=== PATIENT | male | born 1935 | race African-American/Black ===

== ENCOUNTER 2018-09-26 16:05 | Emergency (ER) | payer MEDICARE ==
[2018-09-26] MEDS ORDERED: Cephalexin 500 MG CAP ONE (17:43)
[2018-09-26] MEDS ORDERED: Bacitracin Zinc 1 Packet ONE (17:43)
--- NOTE | 2018-09-26 18:58 | RAD ---
RIGHT TIBIA AND FIBULA 2 VIEWS: Date: 09/26/18 HISTORY: Evaluate for osteomyelitis. Sore in right lower extremity with minimal drainage. COMPARISON: None. FINDINGS: There are vascular calcifications. No fracture. No cortical irregularity. No periosteal reaction. IMPRESSION: No radiographic evidence of osteomyelitis. POS: PPP
== END 2018-09-26 17:54 | disposition home or self-care (01) ==
LOC: MADERS 16:05
DX: L03.115 Cellulitis of right lower limb (principal); F03.90 Unspecified dementia, unspecified severity, without behavioral disturbance, psychotic disturbance, mood disturbance, and anxiety; E11.9 Type 2 diabetes mellitus without complications; E78.5 Hyperlipidemia, unspecified; I10 Essential (primary) hypertension; Z79.82 Long term (current) use of aspirin; Z79.84 Long term (current) use of oral hypoglycemic drugs

== ENCOUNTER 2019-12-14 12:05 | Outpatient (CLI) | payer MEDICARE ==
[2019-12-14 12:45] LABS: #Basophils 0.1 thou/uL (0.0-0.2); #Eosinphils 0.2 thou/uL (0.0-0.7); #Lymphocytes 1.9 thou/uL (1.20-3.40); #Monocytes 0.4 thou/uL (0.11-0.59); %Basophils 1.1 % (0.0-1.0); %Eosinophils 2.9 % (0.0-10.0); %Lymphocytes 29.2 % (21.0-51.0); %Monocytes 5.3 % (0.0-10.0); %Neutrophils 61.5 % (42.0-75.0); Hemoglobin 13.2 g/dL (14.0-18.0); Mean Corpuscular HGB CONC 30.6 g/dL (32.0-36.0); Mean Corpuscular Hemoglobin 25.9 pg (27.0-31.0); Mean Corpuscular Volume 84.7 fL (78.0-98.0); Platelet Count 166 thou/uL (130-400); RBC Distribution Width 12.6 % (11.5-14.5); Red Blood Cell (RBC) Count 5.09 mill/uL (4.70-6.10); White Blood Cell (WBC) Count 6.5 thou/uL (4.8-10.8)
== END 2019-12-14 12:06 | disposition home or self-care (01) ==
LOC: MADLAB 12:05
PROVIDERS: ATTEND Family Medicine
DX: E11.65 Type 2 diabetes mellitus with hyperglycemia (principal); E87.0 Hyperosmolality and hypernatremia
CPT/HCPCS: 84153; 85025

== ENCOUNTER 2020-07-17 17:50 | Emergency (ER) | payer MEDICARE ==
[2020-07-17] MEDS ORDERED: Lidocaine-Prilocaine 2.5% Cream 5 GM TUBE ONE (18:35)
--- NOTE | 2020-07-17 19:20 | RAD ---
RADIOGRAPH RIGHT HAND 3VIEWS: DATE: 07/17/2020 HISTORY: 84-year-old male status post acute traumatic right hand injury due to fall. FINDINGS: There is no dislocation. No fracture is identified. 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 Diff use osteopenia. IMPRESSION: 1. No fracture. 2. 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
--- NOTE | 2020-07-17 19:24 | CT ---
CT BRAIN NONCONTRAST: DATE: 07/17/2020 HISTORY: 84-year-old male status post acute head trauma from fall FINDINGS: There is no evidence of acute intra-axial or extra-axial hemorrhage. There is no midline shift or any other mass effect. There is no extra-axial fluid collection. There is no evidence of obstructive hydrocephalus. Calvarium is intact. There is diffuse brain parenchymal volume loss. There are low att enuation areas in the white matter. 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 IMPRESSION: 1) No acute intracranial findings. 2) involutional changes and chronic ischemic white matter changes.
--- NOTE | 2020-07-17 19:27 | CT ---
CT CERVICAL SPINE NONCONTRAST: DATE: 07/17/2020 HISTORY: cervical trauma: 83-year-old male status post fall FINDINGS: There are no jumped or perched facets. There is no evidence of acute fracture. The vertebral body hei ghts are maintained. There is no prevertebral soft tissue swelling. IMPRESSION: No evidence of acute fracture or acute traumatic subluxation.
[2020-07-17] MEDS ORDERED: Boostrix 0.5 ML (Tdap) VIAL ONE (20:06)
[2020-07-17] MEDS ORDERED: Lidocaine 1% 20 ML MDV ONE (20:15)
[2020-07-17] MEDS ORDERED: Bacitracin 1 PK ONE (20:44)
== END 2020-07-17 21:05 | disposition home or self-care (01) ==
LOC: MADERS 17:50
DX: S61.210A Laceration without foreign body of right index finger without damage to nail, initial encounter (principal); S00.83XA Contusion of other part of head, initial encounter; S00.31XA Abrasion of nose, initial encounter; F03.90 Unspecified dementia, unspecified severity, without behavioral disturbance, psychotic disturbance, mood disturbance, and anxiety; N40.0 Benign prostatic hyperplasia without lower urinary tract symptoms; E78.5 Hyperlipidemia, unspecified; I10 Essential (primary) hypertension; E78.00 Pure hypercholesterolemia, unspecified; E11.9 Type 2 diabetes mellitus without complications; Z79.899 Other long term (current) drug therapy; Z79.82 Long term (current) use of aspirin; Z86.73 Personal history of transient ischemic attack (TIA), and cerebral infarction without residual deficits; W18.30XA Fall on same level, unspecified, initial encounter
CPT/HCPCS: 12002; 70450; 72125; 90471; 90715

== ENCOUNTER 2020-08-01 16:29 | Emergency (ER) | payer MEDICARE | END 2020-08-01 18:08 | disposition home or self-care (01) | LOC: MADERS 16:29 | DX: S61.411D Laceration without foreign body of right hand, subsequent encounter (principal); E78.5 Hyperlipidemia, unspecified; I10 Essential (primary) hypertension; E78.00 Pure hypercholesterolemia, unspecified; E11.9 Type 2 diabetes mellitus without complications; Z79.82 Long term (current) use of aspirin; Z79.899 Other long term (current) drug therapy ==

== ENCOUNTER 2021-02-17 13:49 | Emergency (ER) | payer MEDICARE | END 2021-02-17 15:25 | disposition home or self-care (01) | LOC: MADERS 13:49 | DX: S00.83XA Contusion of other part of head, initial encounter (principal); S00.531A Contusion of lip, initial encounter; S60.412A Abrasion of right middle finger, initial encounter; M25.561 Pain in right knee; F03.90 Unspecified dementia, unspecified severity, without behavioral disturbance, psychotic disturbance, mood disturbance, and anxiety; E78.5 Hyperlipidemia, unspecified; I10 Essential (primary) hypertension; N40.0 Benign prostatic hyperplasia without lower urinary tract symptoms; E78.00 Pure hypercholesterolemia, unspecified; E11.9 Type 2 diabetes mellitus without complications; Z79.4 Long term (current) use of insulin; Z86.73 Personal history of transient ischemic attack (TIA), and cerebral infarction without residual deficits; Z79.82 Long term (current) use of aspirin; Z79.899 Other long term (current) drug therapy; W18.30XA Fall on same level, unspecified, initial encounter | CPT/HCPCS: 70450; 70486 ==

== ENCOUNTER 2021-06-26 16:00 | Outpatient (CLI) | payer MEDICARE | END 2021-06-26 16:01 | disposition home or self-care (01) | LOC: MADLAB 16:00 | PROVIDERS: ATTEND Physician Assistant | DX: K59.00 Constipation, unspecified (principal) | CPT/HCPCS: 74019 ==

== ENCOUNTER 2021-09-28 22:06 | Emergency (ER) | payer MEDICARE ==
[2021-09-28] MEDS ORDERED: Cefepime 2 GM VIAL ONE (22:33)
[2021-09-28] MEDS ORDERED: Sodium Chloride 0.9% 100 ML ONE (22:33)
[2021-09-28] MEDS ORDERED: Acetaminophen 325 MG Suppository ONE (22:34)
[2021-09-28] MEDS ORDERED: Sodium Chloride 0.9% 250 ML 500 ML ONE (23:00)
[2021-09-28] MEDS ORDERED: Vancomycin HCl 750 MG VIAL ONE (23:00)
[2021-09-28 23:30] LABS: #Basophils 0.1 thou/uL (0.0-0.2); #Lymphocytes 0.5 thou/uL (1.20-3.40); #Monocytes 0.1 thou/uL (0.11-0.59); #Neutrophils 3.3 thou/uL (1.40-6.50); %Basophils 1.3 % (0.0-1.0); %Eosinophils 0.1 % (0.0-10.0); %Lymphocytes 11.8 % (21.0-51.0); %Monocytes 3.4 % (0.0-10.0); %Neutrophils 83.4 % (42.0-75.0); Hemoglobin 12.2 g/dL (14.0-18.0); Mean Corpuscular HGB CONC 30.4 g/dL (32.0-36.0); Mean Corpuscular Volume 85.5 fL (78.0-98.0); Mean Platelet Volume 6.8 fL (7.4-10.4); Platelet Count 121 thou/uL (130-400); RBC Distribution Width 12.4 % (11.5-14.5)
[2021-09-28 23:45] LABS: Base Excess-Venous 0.5 mmol/L (-2.0 to 3.0); Bicarbonate (HCO3v) 26.9 mmol/L (22.0-28.0); CO2 Tension (PvCO2) 49.5 mmHg (42.0-51.0); Calcium, Ionized 1.07 mmol/L (1.15-1.33); Chloride 130 mmol/L (98-107); Potassium 3.8 mmol/L (3.5-5.1); Sodium 164 mmol/L (138-145); T. Carbon Dioxide 28.4 mmol/L (22.0-28.0); vO2 Saturation-calc 85.8 % (60.0-85.0)
[2021-09-28 23:49] LABS: Anion Gap 16 mmol/L (10-20)
[2021-09-28 23:52] LABS: ALT (SGPT) 29 U/L (8-55); AST (SGOT) 42 U/L (5-34); Albumin 2.9 g/dL (3.4-4.8); Alkaline Phosphatase 63 U/L (40-110); BUN (Urea Nitrogen) 78 mg/dL (8.4-25.7); Bilirubin, Total 0.5 mg/dL (0.2-1.2); CK (CPK) 147 U/L (30-200); Calc. Creatinine Clearance 0 mL/min (70-130); Carbon Dioxide 24 mmol/L (23-31); Chloride 123 mmol/L (98-107); Globulin 3.7 g/dL (2.4-3.5); Glucose 119 mg/dL (83-110); Potassium 3.8 mmol/L (3.5-5.1); Protein, Total 6.6 g/dL (5.8-8.1); Sodium 159 mmol/L (136-145)
[2021-09-28 23:55] LABS: Bilirubin Negative (Negative); Blood, Urine Moderate (Negative); Clarity Turbid (Clear); Glucose, Urine (Dipstick) Negative (Negative); Ketone, Urine Negative (Negative); Leukocyte Small (Negative); Nitrite Negative (Negative); Protein, Urine (Dipstick) 100 mg/dL (Neg-Trace); Specific Gravity, Urine 1.025 (1.005-1.030); Urobilinogen 0.2 mg/dL (Less than 2); WBC/HPF Greater than 50 HPF (0-3)
[2021-09-28 23:56] LABS: Bacteria/HPF 2+ HPF (None Seen); Yeast-Budding 2+ HPF (None Seen)
[2021-09-29 00:06] LABS: CKMB 0.5 ng/mL (0-6.6)
[2021-09-29] MEDS ORDERED: Aspirin 300 MG Suppository ONE (00:30)
[2021-09-29 01:36] LABS: SARS-CoV-2 NAA Rapid Test DETECTED (NotDetected)
== END 2021-09-29 01:15 | disposition short-term general hospital (02) ==
LOC: MADERS 22:06
DX: A41.89 Other specified sepsis (principal); U07.1 COVID-19; J12.82 Pneumonia due to coronavirus disease 2019; E87.0 Hyperosmolality and hypernatremia; D61.818 Other pancytopenia; N39.0 Urinary tract infection, site not specified; N17.9 Acute kidney failure, unspecified; I10 Essential (primary) hypertension; E78.5 Hyperlipidemia, unspecified; E11.9 Type 2 diabetes mellitus without complications; Z86.73 Personal history of transient ischemic attack (TIA), and cerebral infarction without residual deficits
CPT/HCPCS: 0240U; 51702; 70450; 71045; 80053; 81003; 81015; 82330; 82550; 82553; 82803; 83605; 83735; 83880; 84443; 84484; 85025; 86140; 87040; 87086; 93005; 94760; 96365; 96366; 96367; J0692; J1956; J3370; J3490; J7050

== ENCOUNTER 2022-03-17 08:42 | Emergency (ER) | payer MEDICARE, OTHER ==
[2022-03-17] MEDS ORDERED: Lactated Ringer's 1,000 ML ONE ×2 (09:41→14:49)
[2022-03-17] MEDS ORDERED: Glycerin Adult Supp. (24 ct jar) ONE (10:45)
[2022-03-17 10:55] LABS: #Eosinphils 0.2 thou/uL (0.0-0.7); #Lymphocytes 1.7 thou/uL (1.20-3.40); #Monocytes 0.3 thou/uL (0.11-0.59); #Neutrophils 4.3 thou/uL (1.40-6.50); %Basophils 0.7 % (0.0-1.0); %Eosinophils 2.6 % (0.0-10.0); %Lymphocytes 26.6 % (21.0-51.0); %Monocytes 4.9 % (0.0-10.0); %Neutrophils 65.3 % (42.0-75.0); Anisocytosis SLIGHT = 6-15 cells (100X) (0-5/hpf); MDiff Complete? YES; Mean Corpuscular HGB CONC 29.8 g/dL (32.0-36.0); Mean Corpuscular Hemoglobin 25.1 pg (27.0-31.0); Mean Corpuscular Volume 84.4 fL (78.0-98.0); Mean Platelet Volume 10.8 fL (7.4-10.4); Microcytosis SLIGHT = 6-15 cells (100X) (0-5/hpf); Platelet Count 91 thou/uL (130-400); Platelet Morphology Comment Appears Decreased; RBC Distribution Width 15.6 % (11.5-14.5); Red Blood Cell (RBC) Count 5.97 mill/uL (4.70-6.10); White Blood Cell (WBC) Count 6.6 thou/uL (4.8-10.8)
[2022-03-17 11:13] LABS: ALT (SGPT) 45 U/L (8-55); AST (SGOT) 26 U/L (5-34); Albumin 3.8 g/dL (3.4-4.8); Alkaline Phosphatase 85 U/L (40-110); Anion Gap 18 mmol/L (10-20); BUN (Urea Nitrogen) 51 mg/dL (8.4-25.7); Bilirubin, Total 0.9 mg/dL (0.2-1.2); Calc. Creatinine Clearance 0 mL/min (70-130); Calcium 9.8 mg/dL (7.8-10.44); Carbon Dioxide 21 mmol/L (23-31); Chloride 133 mmol/L (98-107); Estimated GFR 22; Globulin 3.6 g/dL (2.4-3.5); Glucose 129 mg/dL (83-110); Lipase 16 U/L (8-78); Magnesium 2.6 mg/dL (1.6-2.6); Potassium 4.4 mmol/L (3.5-5.1); Protein, Total 7.4 g/dL (5.8-8.1); Sodium 167 mmol/L (136-145)
[2022-03-17 11:41] LABS: Phosphorus 3.4 mg/dL (2.3-4.7)
[2022-03-17 14:20] LABS: Anion Gap 17 mmol/L (10-20); BUN (Urea Nitrogen) 51 mg/dL (8.4-25.7); Calc. Creatinine Clearance 0 mL/min (70-130); Calcium 9.7 mg/dL (7.8-10.44); Carbon Dioxide 26 mmol/L (23-31); Chloride 130 mmol/L (98-107); Estimated GFR 23; Glucose 114 mg/dL (83-110); Potassium 4.4 mmol/L (3.5-5.1); Sodium 169 mmol/L (136-145)
[2022-03-17] MEDS ORDERED: Dextrose 5% in Water 1,000 ML ONE (14:49)
== END 2022-03-17 17:55 | disposition short-term general hospital (02) ==
LOC: MADERS 08:42
DX: E87.0 Hyperosmolality and hypernatremia (principal); I12.9 Hypertensive chronic kidney disease with stage 1 through stage 4 chronic kidney disease, or unspecified chronic kidney disease; E11.22 Type 2 diabetes mellitus with diabetic chronic kidney disease; N18.9 Chronic kidney disease, unspecified; E87.8 Other disorders of electrolyte and fluid balance, not elsewhere classified; D69.6 Thrombocytopenia, unspecified; E78.5 Hyperlipidemia, unspecified; F03.90 Unspecified dementia, unspecified severity, without behavioral disturbance, psychotic disturbance, mood disturbance, and anxiety; Z79.4 Long term (current) use of insulin; Z86.73 Personal history of transient ischemic attack (TIA), and cerebral infarction without residual deficits; Z79.899 Other long term (current) drug therapy
CPT/HCPCS: 36415; 70450; 74176; 80053; 83690; 83735; 84100; 85025; 93005; 94760; 96360; 96361; J7070; J7120

== ENCOUNTER 2022-11-07 22:03 | Emergency (ER) | payer MEDICARE, OTHER ==
[2022-11-07 22:44] LABS: #Lymphocytes 0.9 thou/uL (1.20-3.40); #Monocytes 0.3 thou/uL (0.11-0.59); #Neutrophils 5.3 thou/uL (1.40-6.50); %Basophils 0.2 % (0.0-1.0); %Lymphocytes 13.6 % (21.0-51.0); %Monocytes 4.4 % (0.0-10.0); %Neutrophils 81.7 % (42.0-75.0); Hemoglobin 11.7 g/dL (14.0-18.0); MDiff Complete? YES; Mean Corpuscular HGB CONC 31.9 g/dL (32.0-36.0); Mean Corpuscular Hemoglobin 28.6 pg (27.0-31.0); Mean Corpuscular Volume 89.4 fl (78.0-98.0); Ovalocytes SLIGHT = 2-5 cells (100X) (0-1/hpf); Platelet Count 78 10x3/uL (130-400); Platelet Morphology Comment Appears Decreased; RBC Distribution Width 13.3 % (11.5-14.5); Red Blood Cell (RBC) Count 4.11 mill/uL (4.70-6.10); White Blood Cell (WBC) Count 6.5 10x3/uL (4.8-10.8)
[2022-11-07 22:45] LABS: INR-International Normal Ratio 1.2; Prothrombin Time 15.2 sec (12.0-14.7)
[2022-11-07 22:54] LABS: Phosphorus 2.5 mg/dL (2.3-4.7)
[2022-11-07 23:13] LABS: CKMB 0.5 ng/mL (0-6.6)
[2022-11-07 23:15] LABS: Acetaminophen Less than 10.0 mcg/mL (10.0-30.0); Alcohol Less than 10 mg/dL (Less than 10); CK (CPK) 200 U/L (30-200); Salicylate Less than 8.0 mg/dL (15.0-30.0)
[2022-11-07 23:25] LABS: ALT (SGPT) 13 U/L (8-55); AST (SGOT) 16 U/L (5-34); Albumin 3.2 g/dL (3.4-4.8); Alkaline Phosphatase 83 U/L (40-110); BUN (Urea Nitrogen) 75 mg/dL (8.4-25.7); Bilirubin, Total 1.1 mg/dL (0.2-1.2); Calc. Creatinine Clearance 0 mL/min (70-130); Calcium 8.2 mg/dL (7.8-10.44); Carbon Dioxide 28 mmol/L (23-31); Chloride 140 mmol/L (98-107); Estimated GFR 24; Globulin 2.8 g/dL (2.4-3.5); Glucose 167 mg/dL (83-110); Lipase 37 U/L (8-78); Magnesium 2.7 mg/dL (1.6-2.6); Potassium 3.5 mmol/L (3.5-5.1); Sodium Greater than 175 mmol/L (136-145)
[2022-11-07] MEDS ORDERED: Dextrose 5% in Water 1,000 ML ONE (23:41)
[2022-11-07 23:56] LABS: SARS-CoV-2 NAA Rapid Test Not Detected (NotDetected)
[2022-11-07] MEDS ORDERED: cefTRIAXone\\ROCEPHIN 1 GM VIAL ONE (23:56)
== END 2022-11-08 00:34 | disposition short-term general hospital (02) ==
LOC: MADERS 22:03
DX: E87.0 Hyperosmolality and hypernatremia (principal); R77.8 Other specified abnormalities of plasma proteins; G93.89 Other specified disorders of brain; J18.9 Pneumonia, unspecified organism; Z20.822 Contact with and (suspected) exposure to COVID-19; E11.9 Type 2 diabetes mellitus without complications; Z79.4 Long term (current) use of insulin; I10 Essential (primary) hypertension; E78.5 Hyperlipidemia, unspecified; Z79.899 Other long term (current) drug therapy
CPT/HCPCS: 70450; 71045; 74176; 80053; 80307; 82550; 82553; 83605; 83690; 83735; 83880; 84100; 84484; 85025; 85610; 87040; 87077; 87149; 93005; 96374; J0696; J7070

== ENCOUNTER 2022-12-31 11:13 | Emergency (ER) | payer OTHER ==
[~2022-12-31 11:13] MED LIST: Sodium Chloride 0.9% 1,000 ML BAG ONE
[2022-12-31 14:33] LABS: #Basophils 0.1 thou/uL (0.0-0.2); #Eosinphils 0.1 thou/uL (0.0-0.7); #Lymphocytes 1.4 thou/uL (1.20-3.40); #Monocytes 0.4 thou/uL (0.11-0.59); %Basophils 0.9 % (0.0-1.0); %Eosinophils 0.9 % (0.0-10.0); %Lymphocytes 20.3 % (21.0-51.0); %Monocytes 5.8 % (0.0-10.0); %Neutrophils 72.1 % (42.0-75.0); Hemoglobin 10.8 g/dL (14.0-18.0); Mean Corpuscular HGB CONC 32.4 g/dL (32.0-36.0); Mean Corpuscular Hemoglobin 29.2 pg (27.0-31.0); Mean Corpuscular Volume 89.9 fl (78.0-98.0); Mean Platelet Volume 8.3 fL (7.4-10.4); Platelet Count 154 10x3/uL (130-400)
[2022-12-31 14:51] LABS: ALT (SGPT) 11 U/L (8-55); AST (SGOT) 24 U/L (5-34); Albumin 3.4 g/dL (3.4-4.8); Alkaline Phosphatase 71 U/L (40-110); Anion Gap 14 mmol/L (10-20); BUN (Urea Nitrogen) 27 mg/dL (8.4-25.7); Bilirubin, Total 0.3 mg/dL (0.2-1.2); Calc. Creatinine Clearance 0 mL/min (70-130); Calcium 9.3 mg/dL (7.8-10.44); Carbon Dioxide 28 mmol/L (23-31); Chloride 106 mmol/L (98-107); Estimated GFR 67; Globulin 3.4 g/dL (2.4-3.5); Glucose 103 mg/dL (83-110); Potassium 4.2 mmol/L (3.5-5.1); Protein, Total 6.8 g/dL (5.8-8.1); Sodium 144 mmol/L (136-145)
[2022-12-31 14:57] LABS: Bilirubin Negative (Negative); Blood, Urine Moderate (Negative); Glucose, Urine (Dipstick) Negative (Negative); Ketone, Urine Negative (Negative); Leukocyte Moderate (Negative); Nitrite Negative (Negative); Protein, Urine (Dipstick) 30 mg/dL (Neg-Trace); Specific Gravity, Urine 1.015 (1.005-1.030); Urobilinogen 0.2 mg/dL (Less than 2)
[2022-12-31 15:15] LABS: Bacteria/HPF Rare-Few HPF (None Seen); Clarity Hazy (Clear); RBC/HPF 0-3 HPF (0-3); Squamous Epithelial 0-3 HPF (0-3); WBC/HPF 21-50 HPF (0-3)
[2022-12-31] MEDS ORDERED: cefTRIAXone (ROCEPHIN) 1 GM VIAL ONE (15:42)
[2022-12-31] MEDS ORDERED: Sodium Chloride 0.9% 100 ML ONE (15:42)
== END 2022-12-31 16:53 ==
LOC: MADERS 11:13
DX: S00.03XA Contusion of scalp, initial encounter (principal); I12.9 Hypertensive chronic kidney disease with stage 1 through stage 4 chronic kidney disease, or unspecified chronic kidney disease; E11.22 Type 2 diabetes mellitus with diabetic chronic kidney disease; N18.9 Chronic kidney disease, unspecified; D64.9 Anemia, unspecified; R00.0 Tachycardia, unspecified; N39.0 Urinary tract infection, site not specified; E78.00 Pure hypercholesterolemia, unspecified; F03.90 Unspecified dementia, unspecified severity, without behavioral disturbance, psychotic disturbance, mood disturbance, and anxiety; W18.30XA Fall on same level, unspecified, initial encounter; Y92.129 Unspecified place in nursing home as the place of occurrence of the external cause; Z79.4 Long term (current) use of insulin; Z86.73 Personal history of transient ischemic attack (TIA), and cerebral infarction without residual deficits; Z79.899 Other long term (current) drug therapy
CPT/HCPCS: 51701; 70450; 71045; 72125; 72170; 80053; 81003; 81015; 85025; 87086; 96361; 96365; J0696; J3490; J7050

== ENCOUNTER 2023-03-03 21:42 | Emergency (ER) | payer OTHER ==
[2023-03-03 22:06] LABS: #Basophils 0.1 thou/uL (0.0-0.2); #Eosinphils 0.6 thou/uL (0.0-0.7); #Lymphocytes 1.5 thou/uL (1.20-3.40); #Monocytes 0.5 thou/uL (0.11-0.59); #Neutrophils 6.3 thou/uL (1.40-6.50); %Eosinophils 6.3 % (0.0-10.0); %Monocytes 5.2 % (0.0-10.0); %Neutrophils 70.5 % (42.0-75.0); Hemoglobin 10.5 g/dL (14.0-18.0); Mean Corpuscular HGB CONC 31.1 g/dL (32.0-36.0); Mean Corpuscular Hemoglobin 26.9 pg (27.0-31.0); Mean Corpuscular Volume 86.6 fl (78.0-98.0); Mean Platelet Volume 8.9 fL (7.4-10.4); Platelet Count 204 10x3/uL (130-400); RBC Distribution Width 13.2 % (11.5-14.5); Red Blood Cell (RBC) Count 3.91 mill/uL (4.70-6.10); White Blood Cell (WBC) Count 8.9 10x3/uL (4.8-10.8)
[2023-03-03 22:18] LABS: Prothrombin Time 13.9 sec (12.0-14.7)
[2023-03-03 22:19] LABS: PTT 27.9 sec (22.9-36.1)
[2023-03-03 22:32] LABS: Phosphorus 2.2 mg/dL (2.3-4.7)
[2023-03-03 22:53] LABS: ALT (SGPT) 10 U/L (8-55); AST (SGOT) 12 U/L (5-34); Alkaline Phosphatase 84 U/L (40-110); Anion Gap 14 mmol/L (10-20); BUN (Urea Nitrogen) 20 mg/dL (8.4-25.7); Bilirubin, Total 0.3 mg/dL (0.2-1.2); Calc. Creatinine Clearance 0 mL/min (70-130); Carbon Dioxide 28 mmol/L (23-31); Chloride 107 mmol/L (98-107); Estimated GFR 41; Potassium 4.3 mmol/L (3.5-5.1); Sodium 145 mmol/L (136-145)
[2023-03-03 22:57] LABS: Glucose 426 mg/dL (83-110)
[2023-03-03 22:57] LABS: Bacteria/HPF 2+ HPF (None Seen); Bilirubin Negative (Negative); Blood, Urine Moderate (Negative); CAUTI Indications for Culture Dysuria,urgency,freq; Clarity Turbid (Clear); Glucose, Urine (Dipstick) >=1000 mg/dL (Negative); Ketone, Urine Negative (Negative); Leukocyte Small (Negative); Nitrite Negative (Negative); Protein, Urine (Dipstick) 30 mg/dL (Neg-Trace); RBC/HPF 0-3 HPF (0-3); Squamous Epithelial 0-3 HPF (0-3); Urobilinogen 0.2 mg/dL (Less than 2); WBC/HPF Greater than 50 HPF (0-3); Yeast-Budding 3+ HPF (None Seen); Yeast-Hyphae 1+ HPF (None Seen); pH, Urine 5.5 (5.0-9.0)
[2023-03-03 22:59] LABS: Urine Culture Reflex Yes Yes
[2023-03-03] MEDS ORDERED: cefTRIAXone (ROCEPHIN) 2 GM VIAL ONE (23:21)
[2023-03-03] MEDS ORDERED: Sodium Chloride 0.9% 100 ML ONE (23:21)
[2023-03-03] MEDS ORDERED: Sodium Chloride 0.9% 500 ML ONE (23:24)
[2023-03-03] MEDS ORDERED: Insulin Regular 300 UNITS/3 ML VIAL ONE (23:24)
[2023-03-03] MEDS ORDERED: Acetaminophen 650 MG Suppository ONE (23:29)
== END 2023-03-03 23:55 | disposition short-term general hospital (02) ==
LOC: MADERS 21:42
DX: A41.9 Sepsis, unspecified organism (principal); E11.65 Type 2 diabetes mellitus with hyperglycemia; Z79.4 Long term (current) use of insulin; N39.0 Urinary tract infection, site not specified; E78.5 Hyperlipidemia, unspecified; I10 Essential (primary) hypertension; Z79.899 Other long term (current) drug therapy
CPT/HCPCS: 71045; 80053; 81001; 82010; 83605; 83735; 84100; 84484; 85025; 85610; 85730; 87040; 87077; 87086; 87149; 93005; 94760; 96365; J0696; J1815; J3490; J7030

== ENCOUNTER 2023-07-06 06:42 | Emergency (ER) | payer OTHER, MEDICAID | END 2023-07-06 08:35 | disposition home or self-care (01) | LOC: MADERS 06:42 | DX: R64 Cachexia (principal); R63.0 Anorexia; R00.0 Tachycardia, unspecified; I12.0 Hypertensive chronic kidney disease with stage 5 chronic kidney disease or end stage renal disease; E11.22 Type 2 diabetes mellitus with diabetic chronic kidney disease; N18.6 End stage renal disease; G30.8 Other Alzheimer's disease; F02.C0 Dementia in other diseases classified elsewhere, severe, without behavioral disturbance, psychotic disturbance, mood disturbance, and anxiety; Z79.4 Long term (current) use of insulin; Z86.73 Personal history of transient ischemic attack (TIA), and cerebral infarction without residual deficits | CPT/HCPCS: 36416; 71045; 93005 ==